=== PATIENT | male | born 1995 | race Caucasian/White ===

== ENCOUNTER → 2019-03-28 | Outpatient (REF) | payer OTHER | LOC: M SFHCLERA 19:32 | PROVIDERS: ATTEND Nurse Practitioner Family | DX: J02.9 Acute pharyngitis, unspecified (principal) ==

== ENCOUNTER → 2019-05-11 | Outpatient (REF) | payer OTHER ==
[2019-05-12 11:59] LABS: BASO % 0.4 % (0.0-1.0); EOS # 0.2 10^3/uL (0.0-0.50); EOS % 2.2 % (0.0-3.0); HEMATOCRIT 44.2 % (42.0-52.0); HEMOGLOBIN 14.7 g/dl (13.5-17.5); LYMPH # 2.3 10^3/uL (1.5-6.5); LYMPH % 31.7 % (24.0-44.0); MEAN CORPUSCULAR HEMOGLOBIN 29.3 pg (27.0-33.0); MEAN CORPUSCULAR HGB CONC 33.3 g/dl (32.0-36.5); MONO # 0.5 10^3/uL (0.0-0.8); MONO % 7.2 % (0.0-5.0); NEUTROPHILS # 4.2 10^3/uL (1.8-7.7); NEUTROPHILS % 58.2 % (36.0-66.0); PLATELET COUNT, AUTOMATED 167 10^3/uL (150-450); RED BLOOD COUNT 5.02 10^6/uL (4.30-6.10); WHITE BLOOD COUNT 7.3 10^3/uL (4.0-10.0)
[2019-05-12 12:30] LABS: ALBUMIN 4.1 GM/DL (3.2-5.2); ALT/SGPT 17 U/L (12-78); BILIRUBIN,TOTAL 0.9 MG/DL (0.2-1.0); BLOOD UREA NITROGEN 10 MG/DL (7-18); CALCIUM LEVEL 9.1 MG/DL (8.5-10.1); CARBON DIOXIDE LEVEL 30 MEQ/L (21-32); CHLORIDE LEVEL 107 MEQ/L (98-107); CREATININE FOR GFR 0.92 MG/DL (0.70-1.30); FERRITIN 93 NG/ML (26-388); GLOMERULAR FILTRATION RATE > 60.0 (>60); GLUCOSE, FASTING 85 MG/DL (70-100); POTASSIUM SERUM 4.1 MEQ/L (3.5-5.1); SODIUM LEVEL 142 MEQ/L (136-145); TOTAL PROTEIN 6.6 GM/DL (6.4-8.2)
[2019-05-14 00:06] LABS: EBV AB TO NUCLEAR ANTIGEN 49.5 U/mL (0.0-17.9); EBV VIRAL CAPSID AG IgM <36.0 U/mL (0.0-35.9); Lyme Disease IgG/IgM Antibodie <0.91 ISR (0.00-0.90); Lyme Disease IgM Ab Quantitati <0.80 index (0.00-0.79)
== END ==
LOC: M SFHCLERA 19:53
PROVIDERS: ATTEND Physician Assistant
DX: J02.9 Acute pharyngitis, unspecified (principal)

== ENCOUNTER → 2019-11-07 | Outpatient (REF) | payer OTHER | LOC: M SFHCLERA 20:54 | PROVIDERS: ATTEND Physician Assistant | DX: R50.9 Fever, unspecified (principal) ==